=== PATIENT | female | born 1980 | race Caucasian/White ===

== ENCOUNTER 2017-03-27 05:32 | Inpatient (IN) | payer MEDICAID ==
--- NOTE | 2017-03-17 22:29 | GHP ---
[f rep st] PREOP HISTORY AND PHYSICAL DATE OF ADMISSION: 03/27/2017 DATE OF SURGERY: 03/27/2017. 7:30 a.m. SURGERY TO BE PERFORMED: Repeat lower transverse section and bilateral salpingectomy. PREOPERATIVE DIAGNOSIS: Intrauterine at 39 and 5/7 weeks' gestation with a history of lowe r transverse section. Desires repeat. Also multiparity. Desires permanent elective steril ization. SURGEON: Dr. Varsha Hendricks. LEAD RUBY ON RAILS DEVELOPER: Su Sanford, certified nurse. HISTORY OF PRESENT ILLNESS: The patient is a 36-year-old 2, para 1-0-0-1, with a last menstr ual period of 07/06/2016, and an EDC of 03/29/2017, which was confirmed by an 8 week ultrasound. She has had good care at [facility] since registration at 8 weeks' gestation. She segundo s progressed to 39 weeks. RISK FACTORS: She is advanced maternal age. She has had normal Verifi in this , n ormal AFP in this , normal ultrasound. She has hypothyroidism. She is on Synthroid 50 mcg daily and that level has been followed throughout her . She has a history of with G1 secondary to intolerance to labor and arrest of dilation. Desires repeat section. She declines trial of labor. She also has a history of PCOS. 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 The father of the baby was checked. He is negative. DELIVERY OPTIONS: We discussed delivery options with this patient with trial of labor after section versus repeat section. The patient desires repeat section. She declines trial of labor. She also is multiparous, has completed her childbearing and desires a bilateral salp ingectomy during the time of the surgery. PAST OBSTETRICAL HISTORY: This is her second . Her first delivery was in May of 2015, section secondary to intolerance to labor and arrest of dilation. Baby weighed 8 reinaldo nds 15 ounces. PAST GYNECOLOGICAL HISTORY: She had menarche at age 14. Has irregular cycles with an irregular tamanna th. Diagnosed with PCOS. She was started on metformin and conceived this on metformin. S he continued that through the first trimester. Denies abnormal Paps or any STDs. PAST MEDICAL HISTORY: Hypothyroidism. The patient is on 50 mcg daily as part of her infertility wor kup and has stayed on that throughout the . She also had a positive TB skin test at age 10, was on isoniazid for 9 months. All chest x-rays have been negative every 5 years. Elevated BMI. PAST SURGICAL HISTORY: History of wisdom tooth extraction, dental surgery and a . ALLERGIES: No known drug allergies. MEDICATIONS: Include vitamins, Synthroid 50 mcg daily and DHA. LABORATORY: She is A positive, antibody negative, RPR nonreactive, rubella immune, hepatitis negativ e, HIV negative. She is a cystic fibrosis carrier. SMA and Fragile X are negative. Pap normal. Go norrhea and chlamydia negative. Verifi negative. AFP negative. 1-hour GTT 114. GBS was positive. SOCIAL HISTORY: She is . She lives with her and her daughter. She is a rsqp-dn-rops mom. She denies tobacco, alcohol and drug use. FAMILY HISTORY: Maternal grandmother had heart disease. Mom, maternal grandfather and father have h ypertension. Mother has anemia. Maternal grandfather had a stroke. Mother has depression. Multipl e family members with drug addiction issues. REVIEW OF SYSTEMS: Today, negative. PHYSICAL EXAMINATION: VITAL SIGNS: Blood pressure 122/72. Urine dip is negative. Weight is 235 po unds. She has had a 26 pounds weight gain in this . GENERAL: She is a well-developed grav id, obese, white female in no acute distress. LUNGS: Clear to auscultation bilaterally. HEART: Re gular rate and rhythm. No murmurs. ABDOMEN: Gravid, nontender, nondistended. Fundal height is 40. heart tones are 130s. PELVIC: Deferred. ASSESSMENT AND PLAN: A 36-year-old, 2, para 1-0-0-1, who will be 39 weeks' gestation, desire s repeat low transverse section and bilateral salpingectomy. Patient was consented for the procedures today. She understands the risks and benefits. The risks including bleeding, infection, damage to internal organs, uterus, tubes, ovaries, bowel, bladder, nerves, blood vessels, ureters, ne ed for additional procedures, injury, hemorrhage and risk of hysterectomy. The patient is also aware of an increased risk of ectopic with the tubal ligation and that the procedure is co nsidered permanent. She understood these risks and benefits and agreed to proceed. /[id number]/MODL
[~2017-03-27 05:32] MED LIST: CITRIC ACID/SODIUM CITRATE 30 ML UDCUP PO ONE; ceFAZolin 2 GM/DEXTROSE 100 ML IV ONE
[2017-03-27] MEDS ORDERED: CITRIC ACID/SODIUM CITRATE 30 ML UDCUP PO ONE (06:00)
[2017-03-27] MEDS ORDERED: LR 500 ML IV ONE (06:00)
[2017-03-27] MEDS ORDERED: LR 1,000 ML IV SCH (06:00)
[2017-03-27] MEDS ORDERED: ceFAZolin 2 GM/DEXTROSE 100 ML IV ONE (06:00)
--- NOTE | 2017-03-27 07:22 | PREANESOB ---
Obstetric Pre-Anesthesia Info - General Info Proposed Procedure: Repeat C Section and bilateral salpingectomy. : 2 Para: 0 TOYIN: 03/29/17 Gestational Age: 39 week(s) and 5 day(s) - Info Status: Full Term Monitors: External FHR Baseline (bpm): 140 FHR Pattern: Reassuring - Labor Status Section History: Repeat Indications for Current Section: Elective/Repeat Labor Epidural: No Anesthesia ROS: Prior spinal for C Section. Allergies/Adverse Reactions: Allergy/AdvReac Type Severity Reaction Status Date / Time No Known Allergies Allergy Unverified 05/16/15 07:09 Home Medications: Medication Instructions Recorded Levothyroxine [Synthroid 50 mcg 1 tab PO DAILY 05/16/15 (*)] Vit27&Calcium/Iron/FA 1 tab PO DAILY 05/16/15 [] Docusate Sodium [Colace 100 MG (*)] 100 mg PO BID PRN #0 cap 05/20/15 Ibuprofen [Motrin (*)] 600 mg PO Q6 PRN #0 tab 05/20/15 Iron Polysacch/Iron Heme Polyp 28 mg PO DAILY #0 tab 05/20/15 [Bifera] oxyCODONE/APAP 5/325 [Percocet 1 tab PO Q4 PRN #30 tab 05/20/15 5/325 (*)] Visit Medications: Generic Name Dose Route Start Last Admin Trade Name Freq PRN Reason Stop Dose Admin Lactated Ringer's 1,000 mls @ 125 mls/hr 03/27/17 06:00 Lr IV 09/23/17 05:59 CONT NIKOLAS Discontinued Medications Generic Name Dose Route Start Last Admin Trade Name Freq PRN Reason Stop Dose Admin Citric Acid/Sodium Citrate 30 ml 03/27/17 06:00 Bicitra PO 03/27/17 06:01 ONCALL ONE Cefazolin Sodium/Dextrose 100 mls @ 200 mls/hr 03/17/17 06:00 03/18/17 09:26 Ancef 2 Gm (Premix) IV 03/17/17 06:29 Not Given ONCALL ONE Protocol Lactated Ringer's 500 mls @ 0 mls/hr 03/27/17 06:00 Lr IV 03/27/17 06:01 ONCE ONE As Directed Cefazolin Sodium/Dextrose 100 mls @ 200 mls/hr 03/27/17 06:00 03/27/17 06:30 Ancef 2 Gm (Premix) IV 03/27/17 06:29 100 mls ONCALL ONE Administration Protocol - Anesthesia History Response to Local Anesthetics: Normal Anesthesia & Operative History: No Prior Problems Family Anesthesia History: Negative - Social History Substance Use/Abuse: Denies - Vital Signs Blood Pressure: 120/87 Heart Rate: 90 - Focused Exam Neck exam: FROM Mallampati Score: Class 1 Mouth exam: normal dental/mouth exam Pulmonary: no respiratory distress Cardiovascular: regular rate and rhythym - Plan Consent Signed and on Chart: Yes Patient/Guardian Understands and Agrees to Plan: Yes
[2017-03-27 07:32] LABS: % IMMATURE GRANULYOCYTES 0.4 % (0.0-1.1); ABSOLUTE IMMATURE GRANULOCYTES 0.04 10^3/uL (0.00-0.10); ADD DIFF? NO; ADD MORPH? NO; ADD SCAN? NO; ATYPICAL LYMPHOCYTE FLAG 30 (0-99); FRAGMENT RBC FLAG 0 (0-99); HEMATOCRIT 37.6 % (38.0-47.0); HEMOGLOBIN 12.8 g/dL (12.6-16.3); LEFT SHIFT FLG 0 (0-99); LIPEMIA HEMOLYSIS FLAG 90 (0-99); MEAN CELL HEMOGLOBIN 29.8 pg (27.9-34.1); MEAN CELL VOLUME 87.4 fL (81.5-99.8); MEAN PLATELET VOLUME 9.2 fL (8.7-11.7); PLATELET CLUMPS FLAG 0 (0-99); PLATELET COUNT 200 10^3/uL (150-400); RED CELL DISTRIBUTION WIDTH 15.4 % (11.5-15.2)
[2017-03-27] MEDS ORDERED: morphINE PF 5 MG/10 ML INJ ONE (07:39)
[2017-03-27] MEDS ORDERED: fentaNYL 100 MCG/2 ML INJ ONE (07:40)
[2017-03-27] MEDS ORDERED: OXYTOCIN 100 UNITS/10 ML VIAL ONE (08:54)
[2017-03-27] MEDS ORDERED: DEXAMETHASONE 4 MG/ML VIAL ONE ×2 (08:54→08:55)
[2017-03-27] MEDS ORDERED: PHENYLEPHRINE HCL 100 MCG/ML SYR ONE (08:55)
[2017-03-27] MEDS ORDERED: ONDANSETRON 4 MG/2 ML VIAL ONE ×2 (08:55)
[2017-03-27] MEDS ORDERED: PROMETHAZINE HCL 25 MG/ML INJ IVP PRN (09:50)
[2017-03-27] MEDS ORDERED: DOCUSATE SODIUM 100 MG CAP PO PRN (09:50)
[2017-03-27] MEDS ORDERED: ACETAMINOPHEN 325 MG TAB PO PRN (09:50)
[2017-03-27] MEDS ORDERED: SIMETHICONE 80 MG TAB CHEW PO PRN (09:50)
[2017-03-27] MEDS ORDERED: MAGNESIUM HYDROXIDE 30 ML UDCUP PO PRN (09:51)
[2017-03-27] MEDS ORDERED: LACTULOSE 20 GM/30 ML UDCUP PO PRN (09:51)
[2017-03-27] MEDS ORDERED: BISACODYL 10 MG SUPP PR PRN (09:51)
[2017-03-27] MEDS ORDERED: POLYETHYLENE GLYCOL 3350 17 GM PKT PO PRN (09:51)
--- NOTE | 2017-03-27 09:55 | OBDEL ---
Info Type: Repeat Presentation at Delivery: Vertex L&D Analgesia/Anesthesia Type: Spinal GBS+: No Intrapartum Medications: Discontinued Medications Generic Name Dose Route Start Last Admin Trade Name Beverly PRN Reason Stop Dose Admin Cefazolin Sodium/Dextrose 100 mls @ 200 mls/hr 03/17/17 06:00 03/18/17 09:26 Ancef 2 Gm (Premix) IV 03/17/17 06:29 Not Given ONCALL ONE Protocol Cefazolin Sodium/Dextrose 100 mls @ 200 mls/hr 03/27/17 06:00 03/27/17 06:30 Ancef 2 Gm (Premix) IV 03/27/17 06:29 100 mls ONCALL ONE Administration Protocol Cefazolin Sodium/Dextrose 50 mls @ 200 mls/hr 03/27/17 07:52 03/27/17 07:58 Ancef 1 Gm (Premix) IV 03/27/17 08:06 50 mls ONCALL ONE Administration Protocol - Infant Care Provider Tower Equipment Installer/NEUROSURGICAL NURSE: Jany Barraza Indications for Delivery: Elective (repeat c section @ 39 weeks) Operative Report - Delivery Pre-op Diagnoses: IUP @ 39 5/7 weeks, h/o c section desires repeat, multiparity desires permanent sterilization Post-op Diagnoses: same History of Prior Section: Yes Number of Prior Sections: 1 Nulliparous Prior to Delivery: No Indications for Prior Section: Arrest of Dilation, Non-reas. Status Indications for Current Section: Elective/Repeat Procedure: Scheduled, Tubal Ligation Surgeon: Varsha Hendricks Monorail Charger Operator: Bridget Sanford Anesthesiologist: Torey Vega Complications: None Findings: normal uterus, tubes and ovaries IV Fluid (ml): 1,000 EBL: 800 Data TOYIN: 03/29/17 Gestational Age: 39 week(s) and 5 day(s) [place] Delivery Date: 03/27/17 Delivery Time: 08:50 Sex of Infant: Female Score (1 Min): 8 Score (5 Min): 8 ICD10 Worksheet Patient Problems: Problems Problem Status Onset Status post bilateral salpingectomy Acute delivery delivered Acute - ICD10 Problem Qualifiers (1) Status post bilateral salpingectomy
[2017-03-27] MEDS ORDERED: NALOXONE HCL 0.4 MG/ML INJ IVP PRN (10:21)
[2017-03-27] MEDS ORDERED: ONDANSETRON 4 MG/2 ML VIAL IVP PRN (10:21)
--- NOTE | 2017-03-27 10:21 | POSTANESTH ---
Post Anesthetic Evaluation Cardiovascular Status: Normal, Stable, Similar to Pre-Op Cond, Other, See Comment Respiratory Status: Normal, Stable Level of Consciousness/Mental Status: Can Participate in Eval, Alert and Oriented Pain Control: Adequate, Prn Tx Ordered Nausea/Vomiting Control: Adequate, Prn Tx Ordered Complications Possibly Related to Anesthesia: None Noted
[2017-03-27] MEDS: KETOROLAC 30 MG/1 ML SDV IVP PRN ×2 (12:43→18:49)
[2017-03-27] MEDS: SENNOSIDES/DOCUSATE SODIUM TAB PO SCH (20:58)
[2017-03-28] MEDS: KETOROLAC 30 MG/1 ML SDV IVP PRN ×2 (00:30→06:34)
--- NOTE | 2017-03-28 09:26 | OBPP ---
Progress Note Assessment/Plan: Assessment: 1) s/p RCS and BTL POD #1 - pt is stable 2) Anemia - pt is asymptomatic Plan: Continue routine post-op care Chaudhry to be removed this morning and dressing to be removed Pt may shower Plan for d/c home in am 03/2903/28/17 09:24 Subjective/ Course: 03/28/17 09:25 Pt seen and examined. Doing well with no complaints. Pain is well controlled. She has been OOB, keisha regular diet, chaudhry in place, no flatus. Mod lochia. BF well without difficulty. Would like to go home in am. Objective: 03/28/17 01:40 Patient ABO/Rh A POSITIVE 03/27/17 06:30 Temp Pulse Resp BP Pulse Ox 36.7 C 72 18 82/53 L 92 03/28/17 08:00 03/28/17 08:00 03/28/17 08:00 03/28/17 08:00 03/28/17 08:00 Uterine Position/Fundal Height: Umbilicus -1 Uterine Tone: Firm Physical Exam - Physical Exam Respiratory: lungs clear, normal breath sounds Cardiac/Chest: regular rate, rhythm Abdomen: normal bowel sounds, non-tender, soft, flatus (no), incision (C/D/I with dressing in place), dressing (C/D/I) Extremities: non-tender, normal inspection Skin: normal color, warm/dry Neuro/Psych: alert, normal mood/affect, oriented x 3
[2017-03-28] MEDS: IRON POLYSAC/IRON HEME 28 MG TAB PO SCH ×2 (10:11→20:33)
[2017-03-28] MEDS: SENNOSIDES/DOCUSATE SODIUM TAB PO SCH ×2 (10:11→20:33)
[2017-03-28] MEDS: IBUPROFEN 600 MG TAB PO PRN ×2 (14:34→20:33)
[2017-03-28] MEDS: HYDROCODONE/APAP 5/325 TAB PO PRN ×3 (14:35→22:57)
[2017-03-28 23:04] VITALS: O2SAT 95
[2017-03-29] MEDS: HYDROCODONE/APAP 5/325 TAB PO PRN ×2 (03:49→09:04)
[2017-03-29] MEDS: IBUPROFEN 600 MG TAB PO PRN (03:49)
--- NOTE | 2017-03-29 06:34 | OBPP ---
Progress Note Assessment/Plan: Assessment: 1) s/p RCS and BTL POD #2 - pt is stable 2) Anemia - pt is asymptomatic Plan: Continue routine pp care Plan for d/c home today Instructions reviewed with pt Rx given for [employer] and Motrin Cont PNV Pelvic rest RTC in 2, 4 and 6 weeks 03/29/17 06:29 Subjective/ Course: 03/28/17 09:25 Pt seen and examined. Doing well with no complaints. Pain is well controlled. She has been OOB, keisha regular diet, chaudhry in place, no flatus. Mod lochia. BF well without difficulty. Would like to go home in am. 03/29/17 06:32 Pt seen and examined. Doing well with no complaints. Wants to go home today. Pain is well controlled with po meds. She has been OOB, keisha regular diet, voiding and passing flatus. No BM. Mod lochia. BF well without difficulty. Objective: 03/28/17 01:40 Patient ABO/Rh A POSITIVE 03/27/17 06:30 Temp Pulse Resp BP Pulse Ox 36.8 C 99 18 133/79 H 95 03/28/17 20:35 03/28/17 20:35 03/28/17 20:35 03/28/17 20:35 03/28/17 20:35 Uterine Position/Fundal Height: Umbilicus -1 Uterine Tone: Firm Physical Exam - Physical Exam Respiratory: lungs clear, normal breath sounds Cardiac/Chest: regular rate, rhythm Abdomen: normal bowel sounds, non-tender, soft, flatus (+), incision (C/D/I with steri strips) Extremities: non-tender, normal inspection Skin: normal color, warm/dry Neuro/Psych: alert, normal mood/affect, oriented x 3
--- NOTE | 2017-03-29 06:37 | OBGCSDC ---
General Delivery Information - General Info : 2 Para: 2 Abortions: 0 Type: Repeat L&D Analgesia/Anesthesia Type: Spinal Admission Date: 03/27/17 Labs: Patient ABO/Rh A POSITIVE 03/27/17 06:30 Hct 31.6 % (38.0-47.0) L 03/28/17 01:40 - Hospital Course Antepartum: 03/29/17 06:34 Previous c/s, desires repeat. Request for permanent sterilization. : 03/28/17 09:25 Pt seen and examined. Doing well with no complaints. Pain is well controlled. She has been OOB, keisha regular diet, chaudhry in place, no flatus. Mod lochia. BF well without difficulty. Would like to go home in am. 03/29/17 06:32 Pt seen and examined. Doing well with no complaints. Wants to go home today. Pain is well controlled with po meds. She has been OOB, keisha regular diet, voiding and passing flatus. No BM. Mod lochia. BF well without difficulty. - Delivery Providers Surgeon: Varsha Hendricks Placement Interviewer: Bridget Sanford Anesthesiologist: Torey Vega - Delivery Number of Prior Sections: 1 Indications for Current Section: Elective/Repeat Surgical Procedures: Scheduled, Tubal Ligation Intra-op Complications: None EBL: 800 Data TOYIN: 03/29/17 Gestational Age: 40 week(s) and 0 day(s) [place] Delivery Date: 03/27/17 Delivery Time: 08:50 Sex of Infant: Female Score (1 Min): 8 Score (5 Min): 8 Discharge Information - Discharge Information Condition: Good Instruction/Follow Up: Two Weeks (incision check)
[2017-03-29] MEDS: IRON POLYSAC/IRON HEME 28 MG TAB PO SCH (09:05)
[2017-03-29] MEDS: SENNOSIDES/DOCUSATE SODIUM TAB PO SCH (09:05)
[2017-03-29 09:11] VITALS: BP 120/79; PULSE 81; RESP 16; TEMP 98.4
== END 2017-03-29 11:15 | disposition home or self-care (01) | DRG 766 ==
LOC: FLD 05:32 → FOB 11:41
PROVIDERS: ADMIT Obstetrics & Gynecology; ATTEND Obstetrics & Gynecology
PROC: 10D00Z1 Extraction of Products of Conception, Low, Open Approach (ICD-10-PCS; principal; 2017-03-27)
PROC: 0UT70ZZ Resection of Bilateral Fallopian Tubes, Open Approach (ICD-10-PCS; principal; 2017-03-27)
DX: O34.219 Maternal care for unspecified type scar from previous cesarean delivery (principal); Z37.0 Single live birth; Z3A.40 40 weeks gestation of pregnancy
CPT/HCPCS: J0690; J1100; J1885; J2274; J2370; J2405; J2590; J3010